=== PATIENT | female | born 1970 | race Caucasian/White ===

== ENCOUNTER 2017-01-20 13:14 | Outpatient (CLI) | payer MEDICAID | END 2017-01-20 13:15 | disposition home or self-care (01) | DX: B19.20 Unspecified viral hepatitis C without hepatic coma (principal) ==

== ENCOUNTER 2017-02-03 10:48 | Outpatient (CLI) | payer MEDICAID ==
--- NOTE | 2017-02-03 15:56 | Ultrasound Report ---
RIGHT BREAST ULTRASOUND: 02/03/2017 CLINICAL INDICATION: Pain, palpable abnormality on clinical examination, discharge. TECHNIQUE: Real-time scanning was performed with media sales representative static images obtained. FINDINGS: Ultrasound of the right periareolar breast and lateral breast was performed. Prominent ducts are seen retroareolarly, without evidence of an interductal mass. At the 9 o'clock po sition, 6 cm from the nipple, there is an 11 x 8 x 5 mm intramammary lymph node, likely accounting fo r the palpable abnormality. No sonographically suspicious findings are seen. IMPRESSION: BENIGN FINDINGS. RECOMMENDATION: ROUTINE ANNUAL SCREENING UNLESS OTHERWISE CLINICALLY INDICATED. BIRADS CATEGORY 2-BENIGN FINDINGS. JOB #: [id number] EXT JOB #:[id number]
--- NOTE | 2017-02-03 16:17 | Ultrasound Report ---
LEFT BREAST ULTRASOUND: 02/03/2017 CLINICAL INDICATION: Pain, discharge, nodule on mammogram. TECHNIQUE: Real-time scanning was performed with insurance representative static images obtained. FINDINGS: Ultrasound of the left periareolar breast and inner quadrant were performed. Prominent ducts are seen in the retroareolar parenchyma, without evidence of an interductal mass. At the 9 o'clock position, 4 cm from the nipple, there is a cluster of cysts, measuring 10 x 7 x 5 mm, a ccounting for the mammographic abnormality. No sonographically suspicious findings are identified. IMPRESSION: BENIGN FINDINGS. RECOMMENDATION: ROUTINE ANNUAL SCREENING UNLESS OTHERWISE CLINICALLY INDICATED. BIRADS CATEGORY 2-BENIGN FINDINGS. :9 JOB #: [id number] EXT JOB #:[id number]
--- NOTE | 2017-02-03 17:11 | Mammography Report ---
DIGITAL DIAGNOSTIC BILATERAL MAMMOGRAM: 02/03/2017 CLINICAL INDICATION: Bilateral nipple discharge, breast tenderness, palpable abnormality right later al breast on clinical exam. TECHNIQUE: Bilateral CC, MLO, true lateral, spot magnification views. The breasts demonstrate heterogeneously dense fibroglandular parenchyma bilaterally. In the left inn er central breast, there is a circumscribed 5 mm nodule. Punctate, typically benign calcifications a re present. No mammographic abnormality is appreciated in the lateral right breast, at the site iden tified on the requisition. Please also refer to bilateral breast ultrasounds. IMPRESSION: BENIGN FINDINGS, WITH BILATERAL PROMINENT RETROAREOLAR DUCTS, A LEFT BREAST CYST, AND A RIGHT BREAST INTRAMAMMARY LYMPH NODE ON ULTRASOUND. RECOMMENDATION: ROUTINE ANNUAL SCREENING UNLESS OTHERWISE CLINICALLY INDICATED. BIRADS CATEGORY: 2, BENIGN FINDINGS. STANDARD QUALIFYING STATEMENTS 1. This examination was reviewed with the aid of Computed-Aided Detection (CAD). 2. A negative or benign imaging report should not delay biopsy if clinically suspicious findings are present. Consider surgical consultation if warranted. More than 5% of cancers are not identified b y imaging. 3. Dense breasts may obscure an underlying neoplasm. JOB #: [id number] EXT JOB #:[id number]
== END 2017-02-03 10:49 | disposition home or self-care (01) ==
LOC: DI 10:48
PROVIDERS: ATTEND Nurse Practitioner Family
DX: N64.4 Mastodynia (principal); N60.02 Solitary cyst of left breast; N63 Unspecified lump in breast
CPT/HCPCS: 76642; 77066

== ENCOUNTER 2017-04-15 12:38 | Outpatient (CLI) | payer MEDICAID ==
[2017-04-15 20:58] LABS: IRON 113 ug/dL (28-170); TOTAL IRON BINDING CAPACITY 273 ug/dL (250-450); TRANSFERRIN 195 mg/dL (192-382)
[2017-04-16 12:54] LABS: HEPATITIS A AB TOTAL(IMMUNITY) REACTIVE (NON-REACTIVE)
[2017-04-17 12:37] LABS: TEST RESULT REPORT (())
[2017-04-17 13:46] LABS: TEST RESULT REPORT (())
[2017-04-17 20:56] LABS: SMOOTH MUSCLE IGG AB <20 U (())
[2017-04-21 14:32] LABS: TEST RESULT REPORT (())
== END 2017-04-15 12:39 ==
LOC: LAB.WCP 12:38
PROVIDERS: ATTEND Internal Medicine Gastroenterology
DX: B18.2 Chronic viral hepatitis C (principal)
CPT/HCPCS: 36415; 81599; 82390; 82728; 83516; 83540; 84466; 86038; 86317; 86708; 87340; 87902

== ENCOUNTER 2017-04-24 12:29 | Outpatient (CLI) | payer MEDICAID ==
--- NOTE | 2017-04-24 19:54 | Ultrasound Report ---
EXAM: ABDOMEN ULTRASOUND LIMITED, RUQ EXAM DATE: 04/24/2017 01:20 PM. CLINICAL HISTORY: CHRONIC HEPATITIS C WO MENTION OF HEPATIC COMA. COMPARISON: None. TECHNIQUE: Real-time scanning was performed with static images obtained. FINDINGS: Liver: Mildly hyperechoic liver echotexture. No focal lesions. 13.1 cm. Main portal vein flow: Hepato petal. Gallbladder: Normal. No stones, wall thickening, or sonographic Carrero's sign. Biliary System: CBD measures 9 mm superiorly. The lower common bile duct is obscured by bowel gas. Other: There is a 2.3 x 1.2 x 2.8 cm hypoechoic avascular focus along the posterior margin of the matos creatic head. There is no pancreatic duct dilatation or peripancreatic fluid collection. IMPRESSION: 1. Indeterminate hypoechoic focus along posterior margin of pancreatic head potentially representing a mass or lymph node. Pancreatic CT or MRI recommended for further characterization. 2. Mild fatty liver infiltration. 3. Mild extrahepatic bile duct dilatation, clinical correlation recommended to exclude cholestasis. 4. No evidence of hepatic mass. [facility] Referring Provider Line: [phone] SITE ID: [id number]
== END 2017-04-24 12:30 | disposition home or self-care (01) ==
LOC: DI 12:29
PROVIDERS: ATTEND Internal Medicine Gastroenterology
DX: K76.0 Fatty (change of) liver, not elsewhere classified (principal)
CPT/HCPCS: 76705

== ENCOUNTER 2017-06-12 12:18 | Outpatient (CLI) | payer MEDICAID ==
[2017-06-12] MEDS ORDERED: GADOBUTROL 7.5 MMOL/7.5 ML VIAL ONE (12:25)
== END 2017-06-12 12:19 | disposition home or self-care (01) ==
LOC: DI 12:18
PROVIDERS: ATTEND Internal Medicine
DX: Z53.9 Procedure and treatment not carried out, unspecified reason (principal)

== ENCOUNTER 2017-10-15 13:33 | Outpatient (CLI) | payer MEDICAID ==
[2017-10-19 11:21] LABS: HCV RNA QNT 4.22 Log IU/mL (<1.18); HCV RNA QUANT RT PCR 16698 IU/mL (<15)
== END 2017-10-15 13:34 | disposition home or self-care (01) ==
LOC: LAB.F 13:33
PROVIDERS: ATTEND Internal Medicine Gastroenterology
DX: B18.2 Chronic viral hepatitis C (principal)
CPT/HCPCS: 36415; 87522

== ENCOUNTER 2017-11-16 12:36 | Outpatient (CLI) | payer MEDICAID ==
[2017-11-16 18:09] LABS: % IRON SATURATION 28 % (20-50); IRON 79 ug/dL (28-170); TOTAL IRON BINDING CAPACITY 283 ug/dL (250-450); TRANSFERRIN 202 mg/dL (192-382)
[2017-11-16 18:10] LABS: THYROID STIMULATING HORMONE 2.87 uIU/mL (0.34-5.60)
[2017-11-16 18:23] LABS: BASOPHILS # (AUTO) 0.1 10^3/uL (0.0-0.1); BASOPHILS % (AUTO) 0.5 %; EOSINOPHILS # (AUTO) 0.1 10^3/uL (0.0-0.7); EOSINOPHILS % (AUTO) 0.7 %; HGB - HEMOGLOBIN 14.9 g/dL (12.0-16.0); LYMPHOCYTES # (AUTO) 2.7 10^3/uL (1.5-3.5); LYMPHOCYTES % (AUTO) 26.1 %; MEAN CORPUSCULAR HEMOGLOBIN 33.5 pg (27.0-31.0); MEAN CORPUSCULAR VOLUME 101.5 fL (81.0-99.0); MEAN PLATELET VOLUME 9.9 fL (7.9-10.8); MONOCYTES # (AUTO) 0.6 10^3/uL (0.0-1.0); MONOCYTES % (AUTO) 6.1 %; NEUTROPHILS # (AUTO) 6.8 10^3/uL (1.5-6.6); NEUTROPHILS % (AUTO) 66.6 %; PLT - PLATELET COUNT 239 10^3/uL (130-450); RED BLOOD COUNT 4.45 10^6/uL (4.20-5.40); RED CELL DISTRIBUTION WIDTH 13.1 % (12.0-15.0); WHITE BLOOD COUNT 10.3 x10^3/uL (4.8-10.8)
== END 2017-11-16 12:37 | disposition home or self-care (01) ==
LOC: LAB.F 12:36
PROVIDERS: ATTEND Nurse Practitioner Family
DX: R53.83 Other fatigue (principal)
CPT/HCPCS: 36415; 82607; 83540; 84443; 84466; 85025

== ENCOUNTER 2017-11-18 15:27 | Outpatient (CLI) | payer MEDICAID | END 2017-11-18 15:28 | disposition home or self-care (01) | LOC: LAB.F 15:27 | PROVIDERS: ATTEND Nurse Practitioner Family | DX: D75.89 Other specified diseases of blood and blood-forming organs (principal) | CPT/HCPCS: 36415; 82746; 82977 ==

== ENCOUNTER 2018-07-19 14:52 | Outpatient (CLI) | payer MEDICAID ==
[2018-07-19 17:29] LABS: BASOPHILS % (AUTO) 0.3 %; EOSINOPHILS # (AUTO) 0.1 10^3/uL (0.0-0.7); EOSINOPHILS % (AUTO) 0.6 %; HGB - HEMOGLOBIN 14.4 g/dL (12.0-16.0); LYMPHOCYTES # (AUTO) 2.5 10^3/uL (1.5-3.5); LYMPHOCYTES % (AUTO) 23.1 %; MEAN CORPUSCULAR HEMOGLOBIN 34.7 pg (27.0-31.0); MEAN CORPUSCULAR HGB CONC 34.3 g/dL (32.0-36.0); MEAN PLATELET VOLUME 9.7 fL (7.9-10.8); MONOCYTES # (AUTO) 0.6 10^3/uL (0.0-1.0); MONOCYTES % (AUTO) 5.1 %; NEUTROPHILS # (AUTO) 7.7 10^3/uL (1.5-6.6); NEUTROPHILS % (AUTO) 70.9 %; PLT - PLATELET COUNT 217 10^3/uL (130-450); RED BLOOD COUNT 4.16 10^6/uL (4.20-5.40); RED CELL DISTRIBUTION WIDTH 13.1 % (12.0-15.0); WHITE BLOOD COUNT 10.9 x10^3/uL (4.8-10.8)
[2018-07-19 18:18] LABS: ALBUMIN 4.3 g/dL (3.2-5.5); ALBUMIN/GLOBULIN RATIO 1.5 (1.0-2.2); BILIRUBIN,TOTAL 0.5 mg/dL (0.2-1.0); CALCIUM 9.1 mg/dL (8.5-10.3); CREATININE 0.7 mg/dL (0.4-1.0); TOTAL PROTEIN 7.2 g/dL (6.7-8.2)
[2018-07-21 13:51] LABS: HCV RNA QNT <1.18 NOT DETECTED Log IU/mL (NOT DETECTED); HCV RNA QUANT RT PCR <15 NOT DETECTED IU/mL (NOT DETECTED)
== END 2018-07-19 14:53 | disposition home or self-care (01) ==
LOC: LAB.F 14:52
PROVIDERS: ATTEND Internal Medicine Gastroenterology
DX: B18.2 Chronic viral hepatitis C (principal)
CPT/HCPCS: 36415; 80053; 85025; 87522

== ENCOUNTER 2020-02-17 16:26 | Emergency (ER) | payer SELFPAY ==
[2020-02-17] MEDS ORDERED: IPRATROPIUM/ALBUTEROL 3 ML NEB INH STA (16:51)
[2020-02-17] MEDS ORDERED: predniSONE 20 MG TABLET PO STA (16:51)
[2020-02-17] MEDS ORDERED: IPRATROPIUM/ALBUTEROL 3 ML NEB INH ONE (16:55)
--- NOTE | 2020-02-17 17:18 | ED Physician Documentation ---
History of Present Illness - Stated complaint Stated Complaint: SOA/COUGH - Chief complaint Chief Complaint: Resp - History obtained from History obtained from: Patient - History of Present Illness Timing: Today Pain level max: 0 Pain level now: 0 - Additonal information Additional information: Patient with a longstanding history of asthma. Increased dyspnea over the past several months. Worse with walking, better with albuterol. She is out of her inhalers. No fever. Chronic, dry cough. No nausea or vomiting. No chest pain. 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 - Present Medications Home Medications: Ambulatory Orders Medication Instructions Recorded Confirmed Cholecalciferol (Vitamin D3) 2,000 unit PO DAILY 12/19/13 12/19/13 [Vitamin D-3] Citalopram Hydrobromide [Celexa] 10 mg PO DAILY 12/19/13 12/19/13 Ibuprofen 800 mg PO DAILY 12/19/13 12/19/13 Propranolol [Inderal] 40 mg PO PRN 12/19/13 12/19/13 oxyCODONE/ACET 5/325 [Percocet 5 1 each PO Q4-6H PRN #25 tablet 12/19/13 mg/325 mg] predniSONE [Deltasone] 40 mg PO DAILY 5 Days tablet 12/19/13 Albuterol 2.5 mg INH Q4H PRN #30 neb 02/17/20 predniSONE [Deltasone] 10 mg PO [id number] #42 tab 02/17/20 - Allergies Allergies/Adverse Reactions: Allergies Allergy/AdvReac Type Severity Reaction Status Date / Time No Known Drug Allergies Allergy Verified 02/17/20 16:34 - Social History Does the pt smoke?: Yes Smoking Status: Current every day smoker Does the pt drink ETOH?: Yes - Immunizations Immunizations are current?: Yes PD ED PE NORMAL - Vitals Vital signs reviewed: Yes - General General: Alert and oriented X 3, No acute distress, Well developed/nourished - HEENT HEENT: PERRL, Moist mucous membranes - Neck Neck: Supple, no meningeal sign - Cardiac Cardiac: RRR - Respiratory Respiratory: Other (Diminished breath sounds bilaterally with wheezing) - Abdomen Abdomen: Soft, Non tender, Non distended - Derm Derm: Warm and dry - Extremities Extremities: No edema, No calf tenderness / cord - Neuro Neuro: Alert and oriented X 3 - Psych Psych: Normal mood, Normal affect Results - Vitals Vitals: Vital Signs - 24 hr 02/17/20 02/17/20 16:31 16:57 Temperature 36.8 C Heart Rate 96 96 Respiratory 18 16 Rate Blood Pressure 171/97 H O2 Saturation 99 Oxygen O2 Source Room air PD MEDICAL DECISION MAKING - ED course Complexity details: re-evaluated patient, considered differential, d/w patient ED course: Patient feels much better after DuoNeb treatment. Steroids given as well. Breathing easily. No respiratory distress. No hypoxia. Will place on a steroid taper for home and refill her albuterol nebulizer. Patient counseled regarding signs and symptoms for which I believe and urgent re-evaluation would be necessary. Patient with good understanding of and agreement to plan and is comfortable going home at this time This document was made in part using voice recognition software. While efforts are made to proofread this document, sound alike and grammatical errors may occur. Departure - Departure Disposition: 01 Home, Self Care Clinical Impression: Upper respiratory tract infection Qualifiers: URI type: unspecified viral URI Qualified Code(s): J06.9 - Acute upper respiratory infection, unspecified Condition: Good Instructions: ED Reactive Airway Disease Follow-Up: [facility] [Provider Group] [facility] [Provider Group] Prescriptions: Albuterol 2.5 mg INH Q4H PRN #30 neb PRN Reason: Wheezing predniSONE [Deltasone] 10 mg PO [id number] #42 tab Comments: Use the medications as prescribed. Return if you worsen. Follow-up with your doctor for further care.
[2020-02-17 17:30] VITALS: BP 181/95
== END 2020-02-17 17:31 | disposition home or self-care (01) ==
LOC: ED 16:26
DX: J06.9 Acute upper respiratory infection, unspecified (principal); J45.909 Unspecified asthma, uncomplicated; F17.200 Nicotine dependence, unspecified, uncomplicated
CPT/HCPCS: 99283; 99284; J7512

== ENCOUNTER 2021-04-13 08:00 | Outpatient (CLI) | payer MEDICAID ==
--- NOTE | 2021-04-13 16:35 | XRAY Report ---
PROCEDURE: Chest 2 View X-Ray INDICATIONS: COUGH, short of breath TECHNIQUE: 2 view(s) of the chest. COMPARISON: 02/27/2015 FINDINGS: Surgical changes and devices: None. Lungs and pleura: No pleural effusions or pneumothorax. Lungs are clear, hyperexpanded. Mediastinum: Mediastinal contours are normal. Heart size is normal. Mild prominence and tortuosity can be seen of the aorta. Bones and chest wall: No suspicious bony abnormalities. Soft tissues appear unremarkable. IMPRESSION: Hyperexpanded lungs are seen, without an acute cardiopulmonary abnormality seen. Reviewed by: Clemente Arechiga MD on 04/13/2021 3:34 PM GISEL Approved by: Clemente Arechiga MD on 04/13/2021 3:34 PM GISEL Station ID: [id number]
== END 2021-04-13 23:59 | disposition home or self-care (01) ==
LOC: DI.S 08:00
PROVIDERS: ATTEND Physician Assistant Medical
DX: R06.02 Shortness of breath (principal); R05 Cough

== ENCOUNTER 2021-04-27 12:43 | Outpatient (CLI) | payer MEDICAID ==
[2021-04-27 18:00] LABS: BASOPHILS % (AUTO) 0.3 %; EOSINOPHILS # (AUTO) 0.1 10^3/uL (0.0-0.7); EOSINOPHILS % (AUTO) 0.8 %; HCT - HEMATOCRIT 44.8 % (37.0-47.0); HGB - HEMOGLOBIN 14.9 g/dL (12.0-16.0); LYMPHOCYTES # (AUTO) 3.2 10^3/uL (1.5-3.5); LYMPHOCYTES % (AUTO) 33.4 %; MEAN CORPUSCULAR HEMOGLOBIN 33.1 pg (27.0-31.0); MEAN CORPUSCULAR HGB CONC 33.3 g/dL (32.0-36.0); MEAN CORPUSCULAR VOLUME 99.6 fL (81.0-99.0); MEAN PLATELET VOLUME 11.5 fL (7.9-10.8); MONOCYTES # (AUTO) 0.6 10^3/uL (0.0-1.0); MONOCYTES % (AUTO) 5.8 %; NEUTROPHILS # (AUTO) 5.7 10^3/uL (1.5-6.6); NEUTROPHILS % (AUTO) 59.5 %; PLT - PLATELET COUNT 251 10^3/uL (130-450); RED CELL DISTRIBUTION WIDTH 12.5 % (12.0-15.0); WHITE BLOOD COUNT 9.6 x10^3/uL (4.8-10.8)
[2021-04-27 18:26] LABS: ALBUMIN 4.5 g/dL (3.2-5.5); ALBUMIN/GLOBULIN RATIO 1.8 (1.0-2.2); ALKALINE PHOSPHATASE 44 IU/L (42-121); ALT ALANINE AMINOTRANSFERASE 16 IU/L (10-60); AST ASPARTATE AMINOTRANSFERASE 16 IU/L (10-42); BILIRUBIN,TOTAL 0.5 mg/dL (0.2-1.0); BUN - BLOOD UREA NITROGEN 11 mg/dL (6-20); CHOL/HDL RATIO 4.7 (<4.4); CHOLESTEROL 242 mg/dL; CREATININE 0.7 mg/dL (0.4-1.0); GFR - MDRD 89 (>89); HDL CHOLESTEROL 51 mg/dL; LDL CHOLESTEROL,CALCULATED 165 mg/dL; LDL/HDL RATIO 3.2 (<4.4); TRIGLYCERIDES 129 mg/dL; VLDL CHOLESTEROL 26 mg/dL
[2021-04-27 18:35] LABS: THYROID STIMULATING HORMONE 2.76 uIU/mL (0.34-5.60)
[2021-04-27 18:46] LABS: CALCIUM 9.1 mg/dL (8.5-10.3); CARBON DIOXIDE - CO2 23 mmol/L (21-32); CHLORIDE 102 mmol/L (101-111); GLUCOSE 96 mg/dL (70-100); POTASSIUM 3.7 mmol/L (3.5-5.0); SODIUM 134 mmol/L (135-145)
== END 2021-04-27 12:44 | disposition home or self-care (01) ==
LOC: LAB.S 12:43
PROVIDERS: ATTEND Physician Assistant
DX: Z00.00 Encounter for general adult medical examination without abnormal findings (principal); Z79.899 Other long term (current) drug therapy; I10 Essential (primary) hypertension; R06.02 Shortness of breath; F32.9 Major depressive disorder, single episode, unspecified
CPT/HCPCS: 36415; 80053; 80061; 82306; 83721; 84443; 85025

== ENCOUNTER 2021-05-11 15:30 | Outpatient (CLI) | payer MEDICAID ==
--- NOTE | 2021-05-13 16:09 | Mammography Report ---
BILATERAL DIGITAL SCREENING MAMMOGRAM 3D/2D WITH EXAGGERATED CC: 05/11/2021 CLINICAL: Family history of breast cancer. Comparison is made to exam dated: 02/03/2017 mammogram - [facility]. There are sca ttered fibroglandular elements in both breasts. No significant masses, calcifications, or other findings are seen in either breast. There has been no significant interval change. IMPRESSION: NEGATIVE There is no mammographic evidence of malignancy. A 1 year screening mammogram is recommended. This exam was interpreted at Station ID: [id number]. NOTE: For mammograms, a report in lay terms will be sent to the patient. Approximately 15% of breast malignancies will not be visualized mammographically. In the management of a palpable breast mass, a negative mammogram must not discourage biopsy of a clinically suspicious lesion. Electronically Signed By: Lyly fleming/michael:05/12/2021 08:47:23 ACR BI-RADS Category 1: Negative 3341F PARENCHYMAL PATTERN: (A) - The breast(s) demonstrate(s) scattered fibroglandular densities. BI-RADS CATEGORY: (1) - 1 RECOMMENDATION: (ANNUAL) - Recommend routine annual screening mammography. [id number] 1 year screening LATERALITY: (B)
== END 2021-05-11 15:31 | disposition home or self-care (01) ==
LOC: DI.S 15:30
DX: Z12.31 Encounter for screening mammogram for malignant neoplasm of breast (principal)

== ENCOUNTER 2022-02-12 13:02 | Outpatient (CLI) | payer MEDICAID ==
[2022-02-12 20:18] LABS: BASOPHILS % (AUTO) 0.4 %; EOSINOPHILS # (AUTO) 0.1 10^3/uL (0.0-0.7); EOSINOPHILS % (AUTO) 1.1 %; HCT - HEMATOCRIT 45.4 % (37.0-47.0); HGB - HEMOGLOBIN 14.7 g/dL (12.0-16.0); LYMPHOCYTES # (AUTO) 2.8 10^3/uL (1.5-3.5); LYMPHOCYTES % (AUTO) 35.8 %; MEAN CORPUSCULAR HEMOGLOBIN 33.6 pg (27.0-31.0); MEAN CORPUSCULAR HGB CONC 32.4 g/dL (32.0-36.0); MEAN CORPUSCULAR VOLUME 103.9 fL (81.0-99.0); MEAN PLATELET VOLUME 11.6 fL (7.9-10.8); MONOCYTES # (AUTO) 0.5 10^3/uL (0.0-1.0); MONOCYTES % (AUTO) 6.2 %; NEUTROPHILS # (AUTO) 4.4 10^3/uL (1.5-6.6); NEUTROPHILS % (AUTO) 56.4 %; PLT - PLATELET COUNT 251 10^3/uL (130-450); RED BLOOD COUNT 4.37 10^6/uL (4.20-5.40); RED CELL DISTRIBUTION WIDTH 13.2 % (12.0-15.0); WHITE BLOOD COUNT 7.9 x10^3/uL (4.8-10.8)
[2022-02-12 20:23] LABS: ALBUMIN 3.8 g/dL (3.2-5.5); ALBUMIN/GLOBULIN RATIO 1.5 (1.0-2.2); ALKALINE PHOSPHATASE 35 IU/L (42-121); ALT ALANINE AMINOTRANSFERASE 19 IU/L (10-60); AST ASPARTATE AMINOTRANSFERASE 17 IU/L (10-42); BILIRUBIN,TOTAL 0.4 mg/dL (0.2-1.0); BUN - BLOOD UREA NITROGEN 11 mg/dL (6-20); CALCIUM 9.2 mg/dL (8.5-10.3); CARBON DIOXIDE - CO2 26 mmol/L (21-32); CHLORIDE 104 mmol/L (101-111); CHOL/HDL RATIO 3.6 (<4.4); CHOLESTEROL 208 mg/dL; CREATININE 0.7 mg/dL (0.4-1.0); GFR - MDRD 89 (>89); GLUCOSE 90 mg/dL (70-100); HDL CHOLESTEROL 57 mg/dL; LDL CHOLESTEROL,CALCULATED 133 mg/dL; LDL/HDL RATIO 2.3 (<4.4); POTASSIUM 4.5 mmol/L (3.5-5.0); SODIUM 136 mmol/L (135-145); TOTAL PROTEIN 6.3 g/dL (6.7-8.2); TRIGLYCERIDES 89 mg/dL; VLDL CHOLESTEROL 18 mg/dL
[2022-02-12 20:26] LABS: THYROID STIMULATING HORMONE 2.51 uIU/mL (0.34-5.60)
[2022-02-12 20:39] LABS: CRP - C-REACTIVE PROTEIN < 1.0 mg/dL (0-1.0)
== END 2022-02-12 13:03 | disposition home or self-care (01) ==
LOC: LAB.S 13:02
PROVIDERS: ATTEND Registered Nurse
DX: Z13.228 Encounter for screening for other metabolic disorders (principal); E78.5 Hyperlipidemia, unspecified; R53.83 Other fatigue; Z13.29 Encounter for screening for other suspected endocrine disorder; Z13.0 Encounter for screening for diseases of the blood and blood-forming organs and certain disorders involving the immune mechanism
CPT/HCPCS: 36415; 80053; 80061; 82306; 82607; 83721; 84443; 85025; 86140

== ENCOUNTER 2022-07-01 08:27 | Emergency (ER) | payer MEDICAID ==
[2022-07-01 08:39] VITALS: BP 140/86
--- OUTSIDE RECORDS SUMMARY | 2022-07-01 08:50 | EXTERNAL MEDICAL SUMMARY RPT | Continuity of Care Document ---
:1970 Author Organization [facility] Address [address] [place] [address] Phone Care Team Providers Name Role Phone Unavailable Unavailable Unavailable Rosemary Andrews Unavailable Unavailable Allergies No information. Encounters No information. Functional Status No information. Immunizations No information. Medications date description facility [id number]+0000 losartan-hydrochlorothiazide [facility] [id number]+0000 losartan-hydrochlorothiazide [facility] [id number]+0000 losartan-hydrochlorothiazide [facility] [id number]+0000 betamethasone dipropionate [facility] [id number]+0000 estradiol [facility] [id number]+0000 estradiol [facility] [id number]+0000 ascorbic acid (vitamin c) [facility] [id number]+0000 ascorbic acid (vitamin c) [facility] [phone]+0000 ascorbic acid (vitamin c) [facility] [id number]+0000 cholecalciferol (vitamin d3) [facility] [id number]+0000 cholecalciferol (vitamin d3) [facility] [id number]+0000 cholecalciferol (vitamin d3) [facility] [id number]+0000 cholecalciferol (vitamin d3) [facility] [id number]+0000 ascorbic acid (vitamin c) [facility] [id number]+0000 ascorbic acid (vitamin c) [facility] [id number]+0000 ascorbic acid (vitamin c) [facility] [id number]+0000 ascorbic acid (vitamin c) [facility] [phone]+0000 cyanocobalamin (vitamin b-12) [facility] [id number]+0000 cyanocobalamin (vitamin b-12) [facility] [id number]+0000 cyanocobalamin (vitamin b-12) [facility] [id number]+0000 cholecalciferol (vitamin d3) [facility] [id number]+0000 cholecalciferol (vitamin d3) [facility] [id number]+0000 cholecalciferol (vitamin d3) [facility] [id number]+0000 betamethasone dipropionate [facility] [id number]+0000 coenzyme q10 [facility] [id number]+0000 coenzyme q10 [facility] 03911418894094+0000 coenzyme q10 [facility] [id number]+0000 coenzyme q10 [facility] [id number]+0000 cholecalciferol (vitamin d3) [facility] [id number]+0000 cholecalciferol (vitamin d3) [facility] [id number]+0000 cholecalciferol (vitamin d3) [facility] [id number]+0000 cholecalciferol (vitamin d3) [facility] [id number]+0000 cyanocobalamin (vitamin b-12) [facility] [id number]+0000 cyanocobalamin (vitamin b-12) [facility] [id number]+0000 cyanocobalamin (vitamin b-12) [facility] [id number]+0000 cyanocobalamin (vitamin b-12) [facility] 75158501594145+0000 betamethasone dipropionate [facility] 42134023349152+0000 cyanocobalamin (vitamin b-12) [facility] 85530484203540+0000 cyanocobalamin (vitamin b-12) [facility] [id number]+0000 cyanocobalamin (vitamin b-12) [facility] [id number]+0000 cyanocobalamin (vitamin b-12) [facility] [id number]+0000 losartan-hydrochlorothiazide [facility] [id number]+0000 losartan-hydrochlorothiazide [facility] [id number]+0000 losartan-hydrochlorothiazide [facility] 69595204253971+0000 albuterol sulfate [facility] 35642380777384+0000 albuterol sulfate [facility] [id number]+0000 coenzyme q10 [facility] [id number]+0000 coenzyme q10 [facility] 25166464002764+0000 coenzyme q10 [facility] [id number]+0000 coenzyme q10 [facility] 16171251282350+0000 estradiol [facility] [id number]+0000 coenzyme q10 [facility] [id number]+0000 coenzyme q10 [facility] 74993577270730+0000 coenzyme q10 [facility] 47218250317823+0000 albuterol sulfate [facility] 78884078136500+0000 albuterol sulfate [facility] 66201502862930+0000 albuterol sulfate [facility] 75024018405155+0000 albuterol sulfate [facility] 02328091310702+0000 ascorbic acid (vitamin c) [facility] 07653837351596+0000 ascorbic acid (vitamin c) [facility] [id number]+0000 ascorbic acid (vitamin c) [facility] [id number]+0000 cholecalciferol (vitamin d3) [facility] 06047574148104+0000 cholecalciferol (vitamin d3) [facility] 34113115521903+0000 cholecalciferol (vitamin d3) [facility] 47572720335675+0000 estradiol [facility] 45978028478245+0000 cyanocobalamin (vitamin b-12) [facility] 59269117219488+0000 cyanocobalamin (vitamin b-12) [facility] 77391227912590+0000 cyanocobalamin (vitamin b-12) [facility] 06514394262475+0000 estradiol [facility] [id number]+0000 estradiol [facility] 10216039528374+0000 betamethasone dipropionate [facility] 04157592799586+0000 coenzyme q10 [facility] 75453158740735+0000 coenzyme q10 [facility] 76612489860987+0000 coenzyme q10 [facility] [id number]+0000 losartan-hydrochlorothiazide [facility] [id number]+0000 losartan-hydrochlorothiazide [facility] [id number]+0000 losartan-hydrochlorothiazide [facility] 34185470709528+0000 losartan-hydrochlorothiazide [facility] [id number]+0000 losartan-hydrochlorothiazide [facility] [id number]+0000 losartan-hydrochlorothiazide [facility] [id number]+0000 coenzyme q10 [facility] dum[facility] [id number]+0000 coenzyme q10 [facility] Problems No information. Procedures date description facility [id number]+0000 SNOMED-CT:612181052 Hx of [facility] [id number]+0000 SNOMED-CT:023734127 Hx of [facility] [id number]+0000 Visit Code Hold [facility] [id number]+0000 Visit Code Hold [facility] [id number]+0000 Visit Code Hold [facility] Results/Labs No information. Social History date description facility [id number]+0000 Current every day smoker [facility] [id number]+0000 Current every day smoker [facility] [id number]+0000 Current every day smoker [facility] Vital Signs date measurement value units [id number]+0000 BMI BMI 30.14 kg/m2 85779812388750+0000 BP_diastolic BP_diastolic 90 mmHg 09085063508690+0000 BP_diastolic BP_diastolic 91 mmHg 69968337537545+0000 BP_systolic BP_systolic 141 mmHg 31395544585595+0000 BP_systolic BP_systolic 142 mmHg 56200797915570+0000 heart_rate heart_rate 78 /min 09551565495865+0000 height_metric height_metric 157.48 cm 35683562709921+0000 height_standard height_standard 62 in 69153485215866+0000 respiration_rate respiration_rate 16 /min 08696070960481+0000 temperature_metric temperature_metric 36.56 C 54763122999137+0000 temperature_standard temperature_standard 9 7.8 F 24426492793093+0000 weight_metric weight_metric 74.48 kg 67941103710138+0000 weight_standard weight_standard 164.2 lb 21368922817936+0000 BMI BMI 30.14 kg/m2 20438559625369+0000 BP_diastolic BP_diastolic 90 mm[H g] 43104915755188+0000 BP_diastolic BP_diastolic 91 mm[H g] 28632765388912+0000 BP_systolic BP_systolic 141 mm[Hg] 40993662445533+0000 BP_systolic BP_systolic 142 mm[Hg] 41839894773127+0000 heart_rate heart_rate 78 /min 88946612774098+0000 height_metric height_metric 157.48 cm 58938932430929+0000 height_standard height_standard 62 in 20343686947866+0000 respiration_rate respiration_rate 16 /min 18333420346948+0000 temperature_metric temperature_metric 36.56 C 26350151256392+0000 temperature_standard temperature_standard 9 7.8 F 54981459892176+0000 weight_metric weight_metric 74.48 kg 65700432016720+0000 weight_standard weight_standard 164.2 lb 16956994723872+0000 BMI BMI 30.47 kg/m2 95446911732770+0000 BP_diastolic BP_diastolic 100 mmHg 63349440481958+0000 BP_systolic BP_systolic 135 mmHg 08496108680936+0000 heart_rate heart_rate 77 /min 60195396770988+0000 height_metric height_metric 157.48 cm 00467888030245+0000 height_standard height_standard 62 in 31555606571256+0000 respiration_rate respiration_rate 16 /min 38540733614691+0000 temperature_metric temperature_metric 36.11 C 59845014570355+0000 temperature_standard temperature_standard 9 7 F 48028691283583+0000 weight_metric weight_metric 75.3 kg +0000 weight_standard weight_standard 166 lb
[2022-07-01 08:59] LABS: BASOPHILS % (AUTO) 0.5 %; EOSINOPHILS # (AUTO) 0.2 10^3/uL (0.0-0.7); EOSINOPHILS % (AUTO) 1.9 %; HCT - HEMATOCRIT 42.4 % (37.0-47.0); HGB - HEMOGLOBIN 14.2 g/dL (12.0-16.0); LYMPHOCYTES # (AUTO) 3.1 10^3/uL (1.5-3.5); LYMPHOCYTES % (AUTO) 38.6 %; MEAN CORPUSCULAR HEMOGLOBIN 33.6 pg (27.0-31.0); MEAN CORPUSCULAR HGB CONC 33.5 g/dL (32.0-36.0); MEAN CORPUSCULAR VOLUME 100.5 fL (81.0-99.0); MEAN PLATELET VOLUME 10.6 fL (7.9-10.8); MONOCYTES # (AUTO) 0.5 10^3/uL (0.0-1.0); MONOCYTES % (AUTO) 5.8 %; NEUTROPHILS # (AUTO) 4.2 10^3/uL (1.5-6.6); NEUTROPHILS % (AUTO) 52.9 %; PLT - PLATELET COUNT 241 10^3/uL (130-450); RED BLOOD COUNT 4.22 10^6/uL (4.20-5.40); RED CELL DISTRIBUTION WIDTH 12.8 % (12.0-15.0); WHITE BLOOD COUNT 7.9 x10^3/uL (4.8-10.8)
[2022-07-01 09:12] LABS: BILIRUBIN,URINE NEGATIVE (NEGATIVE); GLUCOSE, URINE (UA) NEGATIVE (NEGATIVE); KETONES,URINE (UA) NEGATIVE (NEGATIVE); LEUKOCYTE ESTERASE, URINE NEGATIVE (NEGATIVE); NITRITE,URINE NEGATIVE (NEGATIVE); OCCULT BLOOD,URINE TRACE-INTA (NEGATIVE); PROTEIN,URINE NEGATIVE (NEGATIVE); UROBILINOGEN,URINE 0.2 (NORMAL) E.U./dL (NORMAL)
[2022-07-01 09:14] LABS: CLARITY,URINE CLEAR (CLEAR)
[2022-07-01 09:18] LABS: ALBUMIN 4.2 g/dL (3.2-5.5); ALBUMIN/GLOBULIN RATIO 1.6 (1.0-2.2); BILIRUBIN,TOTAL 0.5 mg/dL (0.2-1.0); CREATININE 0.8 mg/dL (0.4-1.0); POTASSIUM 4.1 mmol/L (3.5-5.0); TOTAL PROTEIN 6.9 g/dL (6.7-8.2)
--- NOTE | 2022-07-01 11:29 | ED Physician Documentation ---
PD HPI ABD PAIN - Stated complaint Stated Complaint: FEMALE - Chief complaint Chief Complaint: Abd Pain - History obtained from History obtained from: Patient - Additional information Additional information: 52-year-old woman with history of hypertension presents for the evaluation of rectal bleeding. Starting today she had a single stool that was painless but mostly noticed blood on the toilet paper. Less so in with the stool and in the bowl. No rectal pain. No constipation. She is never had a colonoscopy. She feels fatigued but she thinks that is just because she is working 2 jobs. 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 - Present Medications Home Medications: Ambulatory Orders Medication Instructions Recorded Confirmed Cholecalciferol (Vitamin D3) 2,000 unit PO DAILY 12/19/13 12/19/13 [Vitamin D-3] Citalopram Hydrobromide [Celexa] 10 mg PO DAILY 12/19/13 12/19/13 Ibuprofen 800 mg PO DAILY 12/19/13 12/19/13 Propranolol [Inderal] 40 mg PO PRN 12/19/13 12/19/13 oxyCODONE/ACET 5/325 [Percocet 5 1 each PO Q4-6H PRN #25 tablet 12/19/13 mg/325 mg] predniSONE [Deltasone] 40 mg PO DAILY 5 Days tablet 12/19/13 Albuterol 2.5 mg INH Q4H PRN #30 neb 02/17/20 predniSONE [Deltasone] 10 mg PO [id number] #42 tab 02/17/20 - Allergies Allergies/Adverse Reactions: Allergies Allergy/AdvReac Type Severity Reaction Status Date / Time No Known Drug Allergies Allergy Verified 07/01/22 08:35 - Social History Does the pt smoke?: Yes Smoking Status: Current every day smoker Does the pt drink ETOH?: Yes - Immunizations Immunizations are current?: Yes PD ED PE NORMAL - Vitals Vital signs reviewed: Yes - General General: Alert and oriented X 3, No acute distress - Abdomen Abdomen: Normal bowel sounds, Soft, Non tender - Back Back: No CVA TTP, No spinal TTP - Derm Derm: Normal color, Warm and dry - Extremities Extremities: No edema, No calf tenderness / cord - Neuro Neuro: Alert and oriented X 3, Normal speech Results - Vitals Vitals: Vital Signs - 24 hr 07/01/22 08:36 Temperature 36.4 C L Heart Rate 76 Respiratory 16 Rate Blood Pressure 140/86 H O2 Saturation 98 Oxygen O2 Source Room air - Labs Labs: Laboratory Tests 07/01/22 07/01/22 07/01/22 08:47 08:53 08:53 WBC 7.9 RBC 4.22 Hgb 14.2 Hct 42.4 MCV 100.5 H MCH 33.6 H MCHC 33.5 RDW 12.8 Plt Count 241 MPV 10.6 Neut # (Auto) 4.2 Lymph # (Auto) 3.1 [place] # (Auto) 0.5 Eos # (Auto) 0.2 Baso # (Auto) 0.0 Absolute Nucleated RBC 0.00 Nucleated RBC % 0.0 Sodium 141 Potassium 4.1 Chloride 108 Carbon Dioxide 26 Anion Gap 7.0 BUN 17 Creatinine 0.8 Estimated GFR (MDRD) 76 L Glucose 99 Calcium 10.0 Total Bilirubin 0.5 AST 23 ALT 21 Alkaline Phosphatase 35 L Total Protein 6.9 Albumin 4.2 Globulin 2.7 Albumin/Globulin Ratio 1.6 Lipase 47 Urine Color LIGHT YELLOW Urine Clarity CLEAR Urine pH 6.0 Ur Specific [place] <=1.005 Urine Protein NEGATIVE Urine Glucose (UA) NEGATIVE Urine Ketones NEGATIVE Urine Occult Blood TRACE-INTA Urine Nitrite NEGATIVE Urine Bilirubin NEGATIVE Urine Urobilinogen 0.2 (NORMAL) Ur Leukocyte Esterase NEGATIVE Ur Microscopic Review NOT INDICATED Urine Culture Comments NOT INDICATED PD MEDICAL DECISION MAKING - ED course ED course: Her labs and exam are reassuring. I recommended rectal examination which she declined, she has never had a colonoscopy and plans to follow-up for 1. Given close return precautions. Departure - Departure Disposition: 01 Home, Self Care Clinical Impression: Rectal bleeding Condition: Good Record reviewed to determine appropriate education?: Yes Instructions: ED Hematochezia Stable Comments: Your labs are reassuring/normal with no evidence of anemia. Follow-up with your primary care nurse practitioner, recommend consideration for follow-up colonoscopy. Return for recurrent symptoms or if worse.
== END 2022-07-01 11:32 | disposition home or self-care (01) ==
LOC: ED 08:27
DX: K62.5 Hemorrhage of anus and rectum (principal); F17.200 Nicotine dependence, unspecified, uncomplicated
CPT/HCPCS: 36415; 80053; 81001; 81003; 83690; 85025; 87086; 99282; 99283

== ENCOUNTER 2022-10-12 15:54 | Outpatient (CLI) | payer MEDICAID | END 2022-10-12 15:55 | disposition home or self-care (01) | LOC: LAB 15:54 | PROVIDERS: ATTEND Physician Assistant Medical | DX: N95.1 Menopausal and female climacteric states (principal) | CPT/HCPCS: 36415; 82670; 83001; 83002 ==

== ENCOUNTER 2023-01-14 13:47 | Outpatient (CLI) | payer BC, MEDICAID ==
[2023-01-19 15:09] LABS: ANTINUCLEAR ANTIBODIES IFA Negative (.)
== END 2023-01-14 13:48 | disposition home or self-care (01) ==
LOC: LAB.S 13:47
PROVIDERS: ATTEND Nurse Practitioner
DX: M25.50 Pain in unspecified joint (principal)
CPT/HCPCS: 36415; 85651; 86038; 86140

== ENCOUNTER 2023-03-13 21:06 | Emergency (ER) | payer BC, MEDICAID ==
[2023-03-13] MEDS ORDERED: SODIUM CHLORIDE 0.9% 1,000 ML IV STA (21:27)
--- NOTE | 2023-03-13 21:50 | ED Physician Documentation ---
History of Present Illness - Stated complaint Stated Complaint: DIZZY - Chief complaint Chief Complaint: Neuro - History obtained from History obtained from: Patient - Additonal information Additional information: Patient is a 53-year-old female presenting for evaluation of feeling lightheaded Starting around 5 PM. 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 She denies feeling vertiginous or off- balance. She states that she also feels like she is in a brain fog and for a brief period felt confused about where she was. Patient states that she is intermittently been having the symptoms for greater than 6 months but feels that they have recently become worse. She has had a brain MRI in August which was unremarkable. She is currently seeing a ui application developer and they believe that she has an autoimmune condition But do not yet have a diagnosis.She reports having poor sleep the last 2 nights due to a new puppy and issues with her cat. She did eat earlier in her shift.She denies a headache, LOC, head trauma. She denies chest pain, shortness of breath, abdominal pain, dysuria.She does feel better sitting down. 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 - Present Medications Home Medications: Ambulatory Orders Medication Instructions Recorded Confirmed Cholecalciferol (Vitamin D3) 2,000 unit PO DAILY 12/19/13 12/19/13 [Vitamin D-3] Citalopram Hydrobromide [Celexa] 10 mg PO DAILY 12/19/13 12/19/13 Ibuprofen 800 mg PO DAILY 12/19/13 12/19/13 Propranolol [Inderal] 40 mg PO PRN 12/19/13 12/19/13 oxyCODONE/ACET 5/325 [Percocet 5 1 each PO Q4-6H PRN #25 tablet 12/19/13 mg/325 mg] predniSONE [Deltasone] 40 mg PO DAILY 5 Days tablet 12/19/13 Albuterol 2.5 mg INH Q4H PRN #30 neb 02/17/20 predniSONE [Deltasone] 10 mg PO [id number] #42 tab 02/17/20 - Allergies Allergies/Adverse Reactions: Allergies Allergy/AdvReac Type Severity Reaction Status Date / Time No Known Drug Allergies Allergy Verified 03/13/23 21:25 - Social History Does the pt smoke?: Yes Smoking Status: Current every day smoker Does the pt drink ETOH?: Yes - Immunizations Immunizations are current?: Yes PD ED PE NORMAL - General General: Alert and oriented X 3, No acute distress, Well developed/nourished - HEENT HEENT: Atraumatic, PERRL, EOMI, Moist mucous membranes, Pharynx benign - Neck Neck: Supple, no meningeal sign - Cardiac Cardiac: RRR, No murmur, Strong equal pulses - Respiratory Respiratory: No respiratory distress, Clear bilaterally - Abdomen Abdomen: Soft, Non tender, Non distended - Derm Derm: Warm and dry - Extremities Extremities: No deformity - Neuro Neuro: Alert and oriented X 3, 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, No motor deficit, No sensory deficit, Normal speech, Other (Normal [id number] bilaterally, normal unassisted gait) Eye Opening: Spontaneous Motor: Obeys Commands Verbal: Oriented GCS Score: 15 Results - Vitals Vitals: Vital Signs - 24 hr 03/13/23 03/13/23 03/13/23 21:19 22:26 22:55 Temperature 37 C Heart Rate 82 72 Heart Rate [ 72 Sitting] Heart Rate [ 70 Standing] Heart Rate [ 66 Supine] Respiratory 16 16 Rate Blood Pressure 128/84 H 121/83 H Blood Pressure 121/83 H [Sitting] Blood Pressure 135/84 H [Standing] Blood Pressure 133/77 H [Supine] O2 Saturation 97 98 Oxygen O2 Source Room air - EKG (time done) 2134 EKG releavant findings:: EKG personally interpreted by author of this note. Relevant findings are: Rate 73, normal sinus rhythm, no STEMI, QTc 430 Rate: Rate (enter#) (73) Rhythm: NSR Intervals: No: Prolonged QT Ischemia: No: ST elevation c/w ischemia Compare to prior EKG: Unchanged from prior EKG (02/27/15 other than t waves in V2 now upright) - Labs Labs: Laboratory Tests 03/13/23 03/13/23 03/13/23 21:28 21:51 21:51 WBC 9.8 RBC 4.17 L Hgb 13.5 Hct 40.7 MCV 97.6 MCH 32.4 H MCHC 33.2 RDW 12.1 Plt Count 212 MPV 11.5 H Neut # (Auto) 5.6 Lymph # (Auto) 3.6 H [place] # (Auto) 0.5 Eos # (Auto) 0.1 Baso # (Auto) 0.0 Absolute Nucleated RBC 0.00 Nucleated RBC % 0.0 Sodium 137 Potassium 3.3 L Chloride 102 Carbon Dioxide 26 Anion Gap 9.0 BUN 16 Creatinine 0.8 Estimated GFR (MDRD) 76 L Glucose 94 POC Whole Bld Glucose 99 Calcium 9.0 Total Bilirubin 0.4 AST 21 ALT 22 Alkaline Phosphatase 39 L Total Protein 6.8 Albumin 3.9 Globulin 2.9 Albumin/Globulin Ratio 1.3 PD Medical Decision Making - ED course Complexity details: reviewed results, re-evaluated patient, d/w patient ED course: Patient is a 53-year-old female presenting for evaluation of feeling lightheaded as well as feeling like she has a brain fog. She has had the symptoms intermittently for at least the past 6 months. Her neuro exam here is nonfocal with no signs of a stroke. Her symptoms do not appear to be vertiginous. Her vital signs appear stable. EKG demonstrates a normal sinus rhythm. Labs including CBC and chemistries were reviewed. Potassium is 3.3. She is feeling better with IV fluids. Orthostatics are negative.Patient counseled on need for close follow-up with PCP. She does report having had poor sleep for the past several nights that this may be a factor. However she is also advised on strict return precautions for any worsening symptoms. Departure - Departure Disposition: 01 Home, Self Care Clinical Impression: Lightheadedness Condition: Stable Instructions: ED Dizziness [facility]O Follow-Up: Rosemary Painter ARNP [Credentialed Staff Provider] - Within 3 Days Comments: The exact cause for your lightheadedness this evening is unclear. Your potassium was slightly low and we did give you a potassium pill. Please make sure you are staying hydrated as well as getting good sleep. I would recommend close follow-up with your primary care provider. If you develop any worsening symptoms such as a headache, feeling off balance, chest pain, difficulty breathing, weakness on one side of your body or any new concerns please return to the emergency department. Forms: Activity restrictions Discharge Date/Time: 03/13/23 22:57
[2023-03-13 21:58] LABS: BASOPHILS % (AUTO) 0.4 %; EOSINOPHILS # (AUTO) 0.1 10^3/uL (0.0-0.7); EOSINOPHILS % (AUTO) 0.6 %; HCT - HEMATOCRIT 40.7 % (37.0-47.0); HGB - HEMOGLOBIN 13.5 g/dL (12.0-16.0); LYMPHOCYTES # (AUTO) 3.6 10^3/uL (1.5-3.5); LYMPHOCYTES % (AUTO) 36.4 %; MEAN CORPUSCULAR HEMOGLOBIN 32.4 pg (27.0-31.0); MEAN CORPUSCULAR HGB CONC 33.2 g/dL (32.0-36.0); MEAN CORPUSCULAR VOLUME 97.6 fL (81.0-99.0); MEAN PLATELET VOLUME 11.5 fL (7.9-10.8); MONOCYTES # (AUTO) 0.5 10^3/uL (0.0-1.0); MONOCYTES % (AUTO) 5.3 %; NEUTROPHILS # (AUTO) 5.6 10^3/uL (1.5-6.6); NEUTROPHILS % (AUTO) 57.1 %; PLT - PLATELET COUNT 212 10^3/uL (130-450); RED BLOOD COUNT 4.17 10^6/uL (4.20-5.40); RED CELL DISTRIBUTION WIDTH 12.1 % (12.0-15.0); WHITE BLOOD COUNT 9.8 x10^3/uL (4.8-10.8)
[2023-03-13 22:10] LABS: ALBUMIN 3.9 g/dL (3.2-5.5); ALBUMIN/GLOBULIN RATIO 1.3 (1.0-2.2); BILIRUBIN,TOTAL 0.4 mg/dL (0.2-1.0); CREATININE 0.8 mg/dL (0.4-1.0); POTASSIUM 3.3 mmol/L (3.5-5.0); TOTAL PROTEIN 6.8 g/dL (6.7-8.2)
[2023-03-13] MEDS ORDERED: POTASSIUM CHLORIDE 20 MEQ TABLET PO STA (22:14)
[2023-03-13 23:02] VITALS: BP 121/83
== END 2023-03-13 22:57 | disposition home or self-care (01) ==
LOC: ED 21:06
DX: R42 Dizziness and giddiness (principal); E87.6 Hypokalemia; F17.200 Nicotine dependence, unspecified, uncomplicated
CPT/HCPCS: 36415; 80053; 85025; 93005; 99284; A9270

== ENCOUNTER 2023-08-13 08:00 | Outpatient (CLI) | payer BC, MEDICAID ==
--- NOTE | 2023-08-15 11:20 | XRAY Report ---
PROCEDURE: Chest 2 View X-Ray INDICATIONS: ORGANISM PNEUMONIA TECHNIQUE: 2 views of the chest were acquired. COMPARISON: Chest radiograph on March 14, 2021 FINDINGS: Surgical changes and devices: None. Lungs and pleura: No pleural effusions or pneumothorax. Lungs are clear. Mediastinum: Mediastinal contours appear normal. Heart size is normal. Bones and chest wall: No suspicious bony lesions. Overlying soft tissues appear unremarkable. IMPRESSION: No acute cardiopulmonary process. Reviewed by: David Lane MD on 08/15/2023 11:19 AM PST Approved by: David Lane MD on 08/15/2023 11:19 AM PST Station ID: [id number]
== END 2023-08-13 23:59 | disposition home or self-care (01) ==
LOC: DI.S 08:00
PROVIDERS: ATTEND Emergency Medicine
DX: J18.9 Pneumonia, unspecified organism (principal)

== ENCOUNTER 2024-01-13 19:31 | Emergency (ER) | payer OTHER, BC ==
[2024-01-13 19:55] VITALS: BP 130/87; O2SAT 97
--- NOTE | 2024-01-13 20:10 | XRAY Report ---
PROCEDURE: Ankle 3+V RT INDICATIONS: Trauma TECHNIQUE: 3 views of the ankle were acquired. COMPARISON: None. FINDINGS: Bones: No fractures or dislocations. Ankle mortise is normally aligned. No suspicious bony lesions . Soft tissues: No tibiotalar joint effusion. Achilles tendon appears normal. Lateral malleolus soft tissue edema. IMPRESSION: Lateral malleolar soft tissue swelling without underlying fracture or dislocation. If there is persistent clinical concern for a radiographically occult fracture, recommend immobilizat ion and repeat imaging in 10 to 14 days. Reviewed by: Bulmaro Pope MD on 01/13/2024 8:09 PM PDT Approved by: Bulmaro Pope MD on 01/13/2024 8:09 PM PDT Station ID: [id number]
--- NOTE | 2024-01-13 20:41 | ED Physician Documentation ---
PD HPI LOWER EXT INJURY - Stated complaint Stated Complaint: RT ANKLE INJ - Chief complaint Chief Complaint: Trauma Ext - History obtained from History obtained from: Patient - History of Present Illness PD HPI LOW EXT INJURY LOCATION: Right, Ankle Type of injury: Fall, Twist Where injury occurred: Work Timing - onset: How many hours ago (1) Timing - duration: Hours (1) Timing - details: Abrupt onset Pain level max: 7 Pain level now: 5 Improved by: Rest, Ice, Immobilization Worsened by: Moving Associated symptoms: Swelling Contributing factors: No: Anticoagulated, Prior ortho surgery - Additional information Additional information: 53-year-old female presents to the emergency department after rolling her right ankle at work on the stairs. Worse with walking, better with rest. No head, neck, back pain. 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 - Present Medications Home Medications: Ambulatory Orders Medication Instructions Recorded Confirmed Cholecalciferol (Vitamin D3) 2,000 unit PO DAILY 12/19/13 12/19/13 [Vitamin D-3] Citalopram Hydrobromide [Celexa] 10 mg PO DAILY 12/19/13 12/19/13 Ibuprofen 800 mg PO DAILY 12/19/13 12/19/13 Propranolol [Inderal] 40 mg PO PRN 12/19/13 12/19/13 oxyCODONE/ACET 5/325 [Percocet 5 1 each PO Q4-6H PRN #25 tablet 12/19/13 mg/325 mg] predniSONE [Deltasone] 40 mg PO DAILY 5 Days tablet 12/19/13 Albuterol 2.5 mg INH Q4H PRN #30 neb 02/17/20 predniSONE [Deltasone] 10 mg PO [id number] #42 tab 02/17/20 HYDROcod/ACETAM 5/325 [[place] 5/325] 1 - 2 ea PO Q6H PRN #10 tablet 01/13/24 Ibuprofen [Motrin] 800 mg PO Q8H PRN #30 tablet 01/13/24 - Allergies Allergies/Adverse Reactions: Allergies Allergy/AdvReac Type Severity Reaction Status Date / Time No Known Drug Allergies Allergy Verified 01/13/24 19:37 - Social History Does the pt smoke?: Yes Smoking Status: Current every day smoker Does the pt drink ETOH?: Yes Does the pt have substance abuse?: No - Immunizations Immunizations are current?: Yes - POLST Patient has POLST: No PD ED PE NORMAL - Vitals Vital signs reviewed: Yes - General General: Alert and oriented X 3, No acute distress - HEENT HEENT: Moist mucous membranes - Derm Derm: Warm and dry - Extremities Extremities: Other (R ankle Mild swelling to the lateral malleolus. Neurovascular intact. Tender to palpation over the lateral malleolus. No base of the fifth metatarsal tenderness. No foot tenderness. Otherwise normal examination of the right ankle. No proximal tenderness of the tib-fib) - Neuro Neuro: Alert and oriented X 3 Results - Vitals Vitals: Vital Signs - 24 hr 01/13/24 19:38 Temperature 36.8 C Heart Rate 86 Respiratory 16 Rate Blood Pressure 130/87 H O2 Saturation 97 Oxygen O2 Source Room air - Rads (name of study) Right ankle x-ray Relevant Findings:: Final report received, See rad report PD Medical Decision Making - ED course Complexity details: reviewed results, re-evaluated patient, considered differential, d/w patient ED course: No acute findings on x-ray except for soft tissue swelling, consistent with sprain. Placed in a air splint for comfort. Given crutches. Will prescribe pain medication for home. Neurovascular intact. Will have her follow-up with her doctor for further care. L&I paperwork completed. Patient counseled regarding signs and symptoms for which I believe and urgent re-evaluation would be necessary. Patient with good understanding of and agreement to plan and is comfortable going home at this time This document was made in part using voice recognition software. While efforts are made to proofread this document, sound alike and grammatical errors may occ ur. Departure - Departure Disposition: 01 Home, Self Care Clinical Impression: Right ankle sprain Qualifiers: Encounter type: initial encounter Involved ligament of ankle: unspecified ligament Qualified Code(s): S93.401A - Sprain of unspecified ligament of right ankle, initial encounter Condition: Good Instructions: ED Sprain Ankle Follow-Up: your,doctor in 1 week [Other] Prescriptions: Ibuprofen [Motrin] 800 mg PO Q8H PRN #30 tablet PRN Reason: PAIN &/OR FEVER HYDROcod/ACETAM 5/325 [[place] 5/325] 1 - 2 ea PO Q6H PRN #10 tablet PRN Reason: Pain Comments: Your x-ray does not show any fractures or dislocation. Wear the splint as needed for comfort. You may bear weight as tolerated. Your prescriptions were sent to the [facility] pharmacy. Please follow-up with your doctor for further care. I am prescribing a short course of narcotic pain medication for you. These are potentially dangerous and addictive medications that should be used carefully. These medications may constipate you. Take an urts-znj-hralmeu stool softener (docusate) twice daily with plenty of water while taking these medications. If you go 24 hours without a bowel movement, take ktiz-nwe-jeexsvj miralax, per package instructions. Do not drink or drive while taking these medications. If you received narcotic or sedating medications while in the emergency department, do not drive for 24 hours. Store this medication in a safe, secure place and out of reach of children. It is a violation of federal law to give or sell this medication to another person or to use in a manner other than prescribed. The ED will not refill narcotic prescriptions, including prescriptions lost or stolen. To dispose of unwanted medications: 1. [facility] at [address] in [place] has a medication drop box. They accept prescription medications (in pill form) Wednesday through Wednesday 9:00 a.m. to 5:00 p.m. 2. The [facility] accepts prescription medications (in pill form only) for disposal year round. Call for more information. 3. Contact the [facility] for the next [facility] sponsored prescription drug collection event. , [phone], or [phone]; Forms: PCP List Discharge Date/Time: 01/13/24 21:10
[2024-01-13] MEDS: IBUPROFEN 800 MG TABLET PO STA (20:44)
[2024-01-13] MEDS: HYDROcod/ACETAM 5/325 MG TABLET PO STA (20:45)
== END 2024-01-13 21:10 | disposition home or self-care (01) ==
LOC: ED 19:31
DX: S93.401A Sprain of unspecified ligament of right ankle, initial encounter (principal); X50.1XXA Overexertion from prolonged static or awkward postures, initial encounter; Y93.89 Activity, other specified; Y92.239 Unspecified place in hospital as the place of occurrence of the external cause; Y99.0 Civilian activity done for income or pay; F17.200 Nicotine dependence, unspecified, uncomplicated
CPT/HCPCS: 73610; 99283; A9270

== ENCOUNTER 2024-01-25 08:00 | Outpatient (CLI) | payer BC, MEDICAID, OTHER ==
--- NOTE | 2024-01-25 18:50 | XRAY Report ---
PROCEDURE: Foot 1-2V RT INDICATIONS: RIGHT ANKLE/FOOT SPRAIN TECHNIQUE: 2 views of the foot were acquired. COMPARISON: Correlation is made with the accompanying imaging. FINDINGS: Bones: No fractures or dislocations. Specifically, the proximal fifth metatarsal is within normal li mits. No suspicious bony lesions. Soft tissues: No tibiotalar joint effusion. Achilles tendon appears normal. IMPRESSION: Plain films within normal limits, without displaced fractures identified. Reviewed by: Clemente Arechiga MD on 01/25/2024 5:49 PM AKMYA Approved by: Clemente Arechiga MD on 01/25/2024 5:49 PM GISEL Station ID: [id number]
--- NOTE | 2024-01-25 18:50 | XRAY Report ---
PROCEDURE: Ankle 3+V RT INDICATIONS: RIGHT ANKLE/FOOT SPRAIN TECHNIQUE: 3 views of the ankle were acquired. COMPARISON: 01/13/2024. Correlation is also made with the accompanying imaging. FINDINGS: Bones: No fractures or dislocations. Ankle mortise is normally aligned. No suspicious bony lesions . The talar dome demonstrates an unremarkable appearance. Soft tissues: No tibiotalar joint effusion. Achilles tendon appears normal. IMPRESSION: No acute bony abnormality can be seen on these follow-up plain films. Reviewed by: Clemente Arechiga MD on 01/25/2024 5:48 PM GISEL Approved by: Clemente Arechiga MD on 01/25/2024 5:48 PM GISEL Station ID: [id number]
== END 2024-01-25 23:59 | disposition home or self-care (01) ==
LOC: DI.S 08:00
PROVIDERS: ATTEND Physician Assistant Medical
DX: S93.401D Sprain of unspecified ligament of right ankle, subsequent encounter (principal); S93.691A Other sprain of right foot, initial encounter